=== PATIENT | male | born 1955 | race Caucasian/White ===

== ENCOUNTER 2018-03-25 21:29 | Emergency (ER) | payer OTHER ==
[2018-03-25] MEDS ORDERED: hydrOXYzine HCl 25 MG TAB ONE (23:26)
[2018-03-25] MEDS ORDERED: TETANUS & DIPHTHERIA TOX,ADULT 0.5 ML VIAL ONE (23:26)
[2018-03-25 23:31] LABS: Absolute Lymphocytes (CBC) 0.8 K/uL (0.7-4.9); Absolute Monocytes 0.5 K/uL (0.1-1.3); Absolute Neutrophil 4.4 K/uL (1.8-8.0); Basophils % 0.6 % (0-1.3); Hematocrit 40.2 % (39.6-49.0); Lymphocytes % 13.7 % (15.3-44.8); MCH 31.8 pg (27.0-35.0); MCV 91.2 fL (80-100); MPV 8.3 fL (7.6-11.3); Monocytes % 8.2 % (3.3-12.3); RBC Red Blood Cell Count 4.41 M/uL (4.33-5.43)
[2018-03-25 23:38] LABS: Protime INR 1.04
[2018-03-25 23:44] LABS: Bicarbonate 25 mEq/L (21-31); Glucose Level 96 mg/dL (65-120); Potassium 3.7 mEq/L (3.6-5.0); Sodium Level 139 mEq/L (135-145)
[2018-03-25 23:50] LABS: ALT/SGPT 18 IU/L (10-60); AST/SGOT 22 IU/L (10-42); Albumin 3.8 g/dL (3.2-5.5); Alkaline Phosphatase 72 IU/L (42-121); BUN Blood Urea Nitrogen 12 mg/dL (6-20); Bilirubin Direct 0.1 mg/dL (0-0.2); Bilirubin Total 0.5 mg/dL (0.3-1.2); Protein, Total 6.8 g/dL (6.0-8.3)
[2018-03-25 23:57] LABS: Alcohol Serum/Plasma 55 mg/dl
--- NOTE | 2018-03-26 00:25 | ER ---
Nurse's Notes [facility] Name: Simone Dye Jr Age: 62 yrs Sex: Male : 1955 Arrival Date: 03/25/2018 Time: 21:33 Bed 18 Private MD: Diagnosis: Compulsive Skin Picking Presentation: 03/25 21:34 Presenting complaint: EMS states: "he has had sores all over his arms and legs for jd3 about 3 weeks now, and he noticed that there were bugs in them. We didn't see any bugs, but the pt claim he can squeeze them out of the sores.". Transition of care: patient was not received from another setting of care. Onset of symptoms was March 25, 2018. Risk Assessment: Do you want to hurt yourself or someone else? Patient reports no desire to harm self or others. Initial Sepsis Screen: Does the patient meet any 2 criteria? No. Patient's initial sepsis screen is negative. Does the patient have a suspected source of infection? No. Patient's initial sepsis screen is negative. Care prior to arrival: None. 21:34 Method Of Arrival: EMS: [facility] jd3 21:34 Acuity: CHERIE 4 jd3 Historical: - Allergies: 21:38 No Known Allergies; jd3 - Home Meds: 21:38 arthritis medication [Active]; jd3 - PMHx: 21:38 Arthritis; jd3 - PSHx: 21:38 None; jd3 - Immunization history:: Adult Immunizations unknown. - Social history:: Smoking status: Patient uses tobacco products, smokes one pack cigarettes per day. Patient uses alcohol, on a daily basis. "twelve pack per day". Patient/guardian denies using street drugs. - Ebola Screening: : Patient negative for fever greater than or equal to 101.5 degrees Fahrenheit, and additional compatible Ebola Virus Disease symptoms. Screenin:42 Abuse screen: Denies threats or abuse. Nutritional screening: No deficits noted. jd3 Tuberculosis screening: No symptoms or risk factors identified. Fall Risk Ambulatory Aid- None/Bed Rest/Nurse Assist (0 pts). Gait- Normal/Bed Rest/Wheelchair (0 pts) Mental Status- Oriented to own ability (0 pts). Total Banerjee Fall Scale indicates No Risk (0-24 pts). Assessment: 21:40 General: Appears in no apparent distress. Behavior is anxious, Smells of alcohol. Pain: jd3 Denies pain. Neuro: Level of Consciousness is awake, alert, obeys commands, Oriented to person, place, time, situation. Cardiovascular: Heart tones S1 S2 present Capillary refill < 3 seconds Patient's skin is warm and dry. Respiratory: Airway is patent Respiratory effort is even, unlabored, Respiratory pattern is regular, symmetrical, Breath sounds are clear bilaterally. GI: Abdomen is round Bowel sounds present X 4 quads. Abd is soft and non tender X 4 quads. Patient currently denies diarrhea, nausea, vomiting. : No signs and/or symptoms were reported regarding the genitourinary system. EENT: No signs and/or symptoms were reported regarding the EENT system. Derm: Skin is intact, Skin is dry, Skin is normal, Skin temperature is warm. Musculoskeletal: Circulation, motion, and sensation intact. Range of motion: intact in all extremities. 22:50 Reassessment: Patient appears in no apparent distress at this time. No changes from jd3 previously documented assessment. Patient and/or family updated on plan of care and expected duration. Pain level reassessed. Patient is alert, oriented x 3, equal unlabored respirations, skin warm/dry/pink. pt request to use restroom. 22:55 Reassessment: pt eloped form ER. jd3 23:00 Reassessment: Patient appears in no apparent distress at this time. No changes from [facility] previously documented assessment. Patient and/or family updated on plan of care and expected duration. Pain level reassessed. Patient is alert, oriented x 3, equal unlabored respirations, skin warm/dry/pink. pt back, reporting he wanted help Patient denies pain at this time. 23:44 Reassessment: Patient appears in no apparent distress at this time. Patient and/or d3 family updated on plan of care and expected duration. Pain level reassessed. Patient is alert, oriented x 3, equal unlabored respirations, skin warm/dry/pink. awaiting results. Patient denies pain at this time. 03/26 00:45 Reassessment: Patient appears in no apparent distress at this time. Patient and/or d3 family updated on plan of care and expected duration. Pain level reassessed. Patient is alert, oriented x 3, equal unlabored respirations, skin warm/dry/pink. 01:01 Reassessment: Patient appears in no apparent distress at this time. Patient and/or jd3 family updated on plan of care and expected duration. Pain level reassessed. Patient is alert, oriented x 3, equal unlabored respirations, skin warm/dry/pink. pt reported understanding of discharge instructions, even and steady gait upon discharge. Patient states feeling better. Vital Signs: 03/25 21:39 BP 128 / 87; Pulse 90; Resp 19 S; Temp 98.0(O); Pulse Ox 95% on R/A; Weight 79.38 kg jd3 (R); Height 6 ft. 4 in. (193.04 cm) (R); Pain 0/10; 23:43 BP 117 / 89; Pulse 96; Resp 19 S; Pulse Ox 96% on R/A; Pain 0/10; jd3 03/26 01:02 BP 122 / 89; Pulse 88; Resp 17 S; Pulse Ox 97% on R/A; Pain 0/10; d3 03/25 21:39 Body Mass Index 21.30 (79.38 kg, 193.04 cm) j ED Course: 03/25 21:33 Patient arrived in ED. rg2 21:34 Joseph Giraldo, LOKESH is Primary Nurse. jd3 21:37 Triage completed. jd3 21:40 Arm band placed on. jd3 21:42 Patient has correct armband on for positive identification. Bed in low position. Call j light in reach. Side rails up X 1. 21:59 Juan Enamorado [facility]. cp 21:59 Juan Ferrera MD is Attending Physician. cp 23:25 Inserted saline lock: 20 gauge in right antecubital area, using aseptic technique. jd3 Blood collected. 03/26 01:00 No provider procedures requiring assistance completed. IV discontinued, intact, jd3 bleeding controlled, No redness/swelling at site. Pressure dressing applied. 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 Lot #: [id number]. } Route: IM; Site: right deltoid; 03/26 00:23 Follow up: Response: No adverse reaction jd3 01:00 Drug: Doxycycline 100 mg Route: PO; jd3 01:00 Follow up: Response: Medication administered at discharge. jd3 Outcome: 00:24 Discharge ordered by . cp 01:00 Discharged to home ambulatory. jd3 01:00 Condition: stable 01:00 Discharge instructions given to patient, Instructed on discharge instructions, follow up and referral plans. medication usage, Demonstrated understanding of instructions, follow-up care, medications, Prescriptions given X 2. 01:02 Patient left the ED. jd3 Signatures: Vivek Méndez rg2 Juan Enamorado PA PA cp Davies, Jonathon, RN RN jd3 Corrections: (The following items were deleted from the chart) 03/25 23:31 22:56 Eloped from patient exam room, after seeing physician Time discovered patient jd3 gone: March 25, 2018 at 22:55 jd3 23:31 22:56 Condition: stable jd3 jd3 23:31 22:56 Instructed on pt eloped before any instructions jd3 jd3 23:41 23:05 Reassessment: pt back jd3 jd3 23:41 22:56 No provider procedures requiring assistance completed. jd3 jd3 23:41 22:56 Patient did not have IV access during this emergency room visit. jd3 jd3 23:45 23:00 Reassessment: pt back, reporting he wanted help jd3 jd3
--- NOTE | 2018-03-26 00:25 | EDPHYS ---
Physician Documentation [facility] Name: Simone Dye Jr Age: 62 yrs Sex: Male : 1955 Arrival Date: 03/25/2018 Time: 21:33 Bed 18 Private MD: ED Physician Juan Ferrera HPI: 03/25 22:15 This 62 yrs old Male presents to ER via EMS with complaints of rash. cp 22:15 The patient's rash thought to be caused by an unknown cause. The rash is located on the cp body diffusely. 22:15 Onset: The symptoms/episode began/occurred 3 week(s) ago. Associated signs and cp symptoms: Pertinent negatives: difficulty breathing, fever, swelling of lips, swelling of throat, swelling of tongue. Severity of symptoms: in the emergency department the symptoms are worse moderately. Patient reports he feels like bugs are under skin. Historical: - Allergies: 21:38 No Known Allergies; jd3 - Home Meds: 21:38 arthritis medication [Active]; jd3 - PMHx: 21:38 Arthritis; jd3 - PSHx: 21:38 None; jd3 - Immunization history:: Adult Immunizations unknown. - Social history:: Smoking status: Patient uses tobacco products, smokes one pack cigarettes per day. Patient uses alcohol, on a daily basis. "twelve pack per day". Patient/guardian denies using street drugs. - Ebola Screening: : Patient negative for fever greater than or equal to 101.5 degrees Fahrenheit, and additional compatible Ebola Virus Disease symptoms. ROS: 22:22 Constitutional: Negative for body aches, chills, fever, poor PO intake. cp 22:22 Eyes: Negative for injury, pain, redness, and discharge. cp 22:22 ENT: Negative for drainage from ear(s), ear pain, sore throat, difficulty swallowing, difficulty handling secretions. 22:22 Cardiovascular: Negative for chest pain, edema, palpitations. 22:22 Respiratory: Negative for cough, shortness of breath, wheezing. 22:22 Abdomen/GI: Negative for abdominal pain, nausea, vomiting, and diarrhea. 22:22 Skin: Positive for rash, diffusely. 22:22 All other systems are negative. Exam: 22:25 Constitutional: The patient appears in no acute distress, alert, awake, cp non-diaphoretic, non-toxic, well developed, well nourished. 22:25 Head/Face: Normocephalic, atraumatic. cp 22:25 Eyes: Periorbital structures: appear normal, Pupils: equal, round, and reactive to light and accomodation, Conjunctiva: normal, Sclera: no appreciated abnormality, Lids and lashes: appear normal, bilaterally. 22:25 ENT: External ear(s): are unremarkable, Ear canal(s): are normal, clear, TM's: dullness, bilaterally, Nose: is normal, Mouth: is normal, Posterior pharynx: is normal, airway is patent, no erythema, no exudate. 22:25 Neck: ROM/movement: is normal, is supple, without pain, no range of motions limitations, no nuchal rigidity. 22:25 Chest/axilla: Palpation: is normal, no crepitus, no tenderness. 22:25 Cardiovascular: Rate: normal, Rhythm: regular, Edema: is not appreciated, JVD: is not appreciated. 22:25 Respiratory: the patient does not display signs of respiratory distress, Respirations: normal, no use of accessory muscles, no retractions, no splinting, no tachypnea, labored breathing, is not present, Breath sounds: are clear throughout, no decreased breath sounds, no stridor, no wheezing. 22:25 Abdomen/GI: Exam negative for discomfort, distension, guarding, Inspection: abdomen appears normal. 22:25 Back: pain, is absent, ROM is normal. 22:25 Skin: injury, avulsion(s), a very small of the diffusely, from picking of skin, that can be described as no foreign body, with mild bleeding, several with mild surrounding erythema. 22:25 Neuro: Orientation: to person, place \\T\\ time. Mentation: lucid, able to follow commands, Cerebellar function: is grossly normal, Motor: moves all fours, strength is normal, Sensation: no obvious gross deficits. 22:25 Psych: Behavior/mood is cooperative, Affect is calm, Patient has no thoughts/intents to harm self or others. Judgement / Insight is normal. 23:37 ECG was reviewed by the Attending Physician. cp Vital Signs: 21:39 BP 128 / 87; Pulse 90; Resp 19 S; Temp 98.0(O); Pulse Ox 95% on R/A; Weight 79.38 kg jd3 (R); Height 6 ft. 4 in. (193.04 cm) (R); Pain 0/10; 23:43 BP 117 / 89; Pulse 96; Resp 19 S; Pulse Ox 96% on R/A; Pain 0/10; jd3 03/26 01:02 BP 122 / 89; Pulse 88; Resp 17 S; Pulse Ox 97% on R/A; Pain 0/10; jd3 03/25 21:39 Body Mass Index 21.30 (79.38 kg, 193.04 cm) jd3 MDM: 03/25 22:00 Patient medically screened. [facility] 23:00 Differential diagnosis: impetigo, parasite infection, compulsive skin picking, cp cellulitis. 03/26 00:22 Data reviewed: vital signs, nurses notes, and as a result, I will discharge patient. 00:22 Counseling: I had a detailed discussion with the patient and/or guardian regarding: the cp historical points, exam findings, and any diagnostic results supporting the discharge/admit diagnosis, the need for outpatient follow up, a family practitioner, to return to the emergency department if symptoms worsen or persist or if there are any questions or concerns that arise at home. Response to treatment: the patient's symptoms have mildly improved after treatment. 03/25 22:31 Order name: Acetaminophen; Complete Time: 00:18 03/26 00:18 Interpretation: Reviewed. 03/25 22:31 Order name: Basic Metabolic Panel; Complete Time: 00:18 03/25 22:31 Order name: CBC with Diff; Complete Time: 00:18 03/26 00:18 Interpretation: Normal except: CELESTINE% 75.5; LYM% 13.7. 03/25 22:31 Order name: ETOH Level; Complete Time: 00:18 cp 03/25 22:31 Order name: Hepatic Function; Complete Time: 00:18 cp 03/25 22:31 Order name: PT-INR; Complete Time: 00:18 cp 03/25 22:31 Order name: Ptt, Activated; Complete Time: 00:18 cp 03/25 22:31 Order name: Salicylate; Complete Time: 00:18 cp 03/25 22:31 Order name: EKG; Complete Time: 22: cp 03/25 22:31 Order name: EKG - Nurse/Tech; Complete Time: 23:34 cp 03/25 22:31 Order name: IV Saline Lock; Complete Time: 23:34 cp 03/25 22:31 Order name: Labs collected and sent; Complete Time: 23:34 cp EC/13 23:37 Rate is 84 beats/min. Rhythm is regular. HI interval is normal. QRS interval is cp prolonged at 106 msec. QT interval is normal. T waves are Inverted in lead aVL. No ST changes noted. Interpreted by me. Reviewed by me. 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 Exp: jd3 06/11/2020. Lot #: [id number]. } Route: IM; Site: right deltoid; 03/26 00:23 Follow up: Response: No adverse reaction jd3 01:00 Drug: Doxycycline 100 mg Route: PO; jd3 01:00 Follow up: Response: Medication administered at discharge. jd3 Disposition: 07:30 Co-signature as Attending Physician, Juan Ferrera MD I agree with the assessment and [facility] plan of care. Disposition: 03/26/18 00:24 Discharged to Home. Impression: Compulsive Skin Picking. - Condition is Stable. - Prescriptions for Vistaril 50 mg Oral capsule - take 1 capsule by ORAL route 4 times per day no driving while taking medication; 30 capsule. Doxycycline Hyclate 100 mg Oral Tablet - take 1 tablet by ORAL route every 12 hours; 20 tablet. - Medication Reconciliation Form, Thank You Letter, Antibiotic Education, Prescription Opioid Use form. - Follow up: Private Physician; When: 48 Hours; Reason: Recheck today's complaints. Signatures: Dispatcher [employer] Juan Rodriguez MD MD cha Page, Corey, PA PA cp Davies, Jonathon, RN RN jd3 Corrections: (The following items were deleted from the chart) 01:02 00:24 03/26/2018 00:24 Discharged to Home. Impression: Compulsive Skin Picking. jd3 Condition is Stable. Forms are Medication Reconciliation Form, Thank You Letter, Antibiotic Education, Prescription Opioid Use. Follow up: Private Physician; When: 48 Hours; Reason: Recheck today's complaints. cp 23:15 03/25 23:15 This 62 yrs old Male presents to ER via EMS with complaints of cp rash. cp
[2018-03-26] MEDS ORDERED: DOXYCYCLINE 100 MG CAP PO ONE (00:35)
--- NOTE | 2018-03-26 08:25 | EKG ---
Test Date: 2018-03-25 Test Time: 23:31:37 Sensory Scientist: DAVIDE MEASUREMENT RESULTS: Intervals: Rate: 84 ND: 156 QRSD: 106 QT: 384 QTc: 453 Tea: P: 70 ND: 156 QRS: -54 T: 70 INTERPRETIVE STATEMENTS: Normal sinus rhythm Left anterior fascicular block Abnormal ECG No previous ECG available for comparison Electronically Signed On 03-26-18 08:24:31 CDT by Primo Montano
== END 2018-03-26 01:02 | disposition home or self-care (01) ==
LOC: ER 21:29
DX: F42.4 Excoriation (skin-picking) disorder (principal); F17.210 Nicotine dependence, cigarettes, uncomplicated; Z23 Encounter for immunization
CPT/HCPCS: 36415; 80048; 80076; 80320; 80329; 85025; 85610; 85730; 90714; 93005; 99284

== ENCOUNTER → 2023-10-22 | Emergency (ER) | payer OTHER ==
[~2023-10-22] MED LIST: LEVETIRACETAM 500 MG/5 ML VIAL IV ONE; NA CHLORIDE 0.9% 100 ML ONE
--- NOTE | 2023-10-22 22:02 | RAD REPORT ---
EXAM DESCRIPTION: CT - Head Brain Wo Cont - 10/22/2023 9:47 pm CLINICAL HISTORY: Head injury with headache COMPARISON: none TECHNIQUE: Computed axial tomography of the head was obtained. IV contrast was not requested. All CT scans are performed using dose optimization technique as appropriate and may include automated exposure control or mA/KV adjustment according to patient size. FINDINGS: 2.2 centimeter intraparenchymal bleed right frontal lobe. No shift of the midline structur es. The ventricles are normal in caliber No significant hypodense areas within the brain visualized No extra-axial fluid collection is noted. Fluid within the left maxillary sinus may indicate acute sinusitis IMPRESSION: 2.2 centimeter intraparenchymal bleed right frontal lobe. Dr. Kincaid of the emergency room notified 9:56 p.m. October 22, 2023
[2023-10-22 22:33] LABS: Potassium 3.7 mEq/L (3.5-5.1); Troponin High Sensitivity 8.8 pg/mL (<58.9)
[2023-10-22 22:42] LABS: Absolute Lymphocytes (CBC) 0.4 K/uL (0.7-4.9); Hematocrit 38.6 % (39.6-49.0); Lymphocytes % 9.3 % (15.3-44.8); MCV 92.4 fL (80-100); MPV 8.4 fL (7.6-11.3); Platelets 119 thou/uL (152-406); RBC Red Blood Cell Count 4.17 M/uL (4.33-5.43)
[2023-10-22 22:58] LABS: Protime INR 1.15
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
[2023-10-23 05:19] VITALS: BP 138/91; O2SAT 100
== END ==
LOC: ER 20:54
PROC: 0HQ3XZZ Repair Left Ear Skin, External Approach (ICD-10-PCS; principal; 2023-10-22)
DX: I61.5 Nontraumatic intracerebral hemorrhage, intraventricular (principal); S01.312A Laceration without foreign body of left ear, initial encounter; Y00.XXXA Assault by blunt object, initial encounter; Z71.51 Drug abuse counseling and surveillance of drug abuser; I10 Essential (primary) hypertension; F17.210 Nicotine dependence, cigarettes, uncomplicated
CPT/HCPCS: 85025; 80048; 36415; 85610; 85730; 84484; 70450; 12013; J1953